=== PATIENT | male | born 1965 | race Caucasian/White ===

== ENCOUNTER 2020-11-24 13:03 | Emergency (ER) | payer BC ==
[~2020-11-24] VITALS: Ht 172.7 cm; Wt 113.6 kg
[2020-11-24 13:05] VITALS: TEMP 97.9
[2020-11-24] MEDS ORDERED: PREDNISONE20 MG PO (14:30)
[2020-11-24] MEDS ORDERED: EPIPEN 2-PAK1 MG/ML IM (14:30)
[2020-11-24 15:50] VITALS: BP 115/76; PULSE 80
== END 2020-11-24 15:04 | disposition home or self-care (01) ==
LOC: COL.ER 13:03
DX: T78.40XA Allergy, unspecified, initial encounter (principal); Z91.018 Allergy to other foods
CPT/HCPCS: J1200; J2930; J7030